=== PATIENT | male | born 1990 | race Hispanic/Latino ===

== ENCOUNTER 2019-11-12 14:35 | Emergency (ER) | payer OTHER, SELFPAY ==
[2019-11-12 14:38] VITALS: BP 128/77; PULSE 76; RESP 18; TEMP 36.4; O2SAT 100; BMI 19.5
--- NOTE | 2019-11-12 15:10 | ED.DCSUM_ITS ---
History of Present Illness Chief Complaint: General Illness Informant: Patient, Family Onset: Days - 4 days Current Severity: Mild Maximum Severity: Mild Narrative: Patient presents with 4 days of flulike symptoms. He describes fever up to 101 with dry heaves, nausea, with occasional vomiting. He has mild muscle aches, worse in his back. Minimal cough noted. He does not feel short of breath or have abdominal pain. He went to urgent care to get a Covid test and they sent him here secondary to scleral icterus. Patient states that his family members have been commenting that his eyes look yellow for the past couple of days. He does state that he has been taking [id number] cold medicine which I suspect may have Tylenol in it. Family at bedside states that he drank an entire bottle of it last night. He does have history of alcohol use with approximately 6 beers a day. He denies history of hepatitis. Past Medical History - Allergies and Home Meds Allergies/Adverse Reactions: Allergies No Known Allergies Allergy (Verified 11/12/19 14:41) Primary Care Physician: Care Physician,No Primary [Primary Care Provider] - Past Medical History: None Smoking Status: Current some day smoker Alcohol: Occasional - 6 beers per day Review of Systems General: Reports: Fever. Denies: Chills Eyes: Denies: Visual changes - bilaterally ENT: Denies: Bilateral ear pain, Rhinorrhea, Sore throat Cardiovascular: Denies: Chest pain Respiratory: Reports: Cough, Sputum. Denies: Dyspnea Gastrointestinal: Reports: Nausea, Vomiting. Denies: Abdominal pain, Diarrhea Genitourinary: Denies: Dysuria Musculoskeletal: Reports: Myalgias. Denies: Swelling, Extremity Pain Skin: Denies: Rash Neurological: Denies: Headache Hematologic: Denies: Easy bruising, Easy bleeding Allergy: Denies: Uticaria Physical Exam Vital Signs/Narrative: Vital Signs Temp Pulse Resp BP Pulse Ox 11/12/19 14:38 97.6 F L 76 18 128/77 H 100 Inital Vital Signs reviewed: Yes General: Well nourished, Well developed Head: Normocephalic Eyes: Perrl, EOMI Neck: Supple Cardiovascular: Regular rate, Regular rhythm Respiratory: No distress, CTA bilaterally Abdomen: Soft, Nontender, Normal bowel sounds Extremities: Nontender Skin: Normal color Neurological: Alert, Oriented x3, Normal Strength, Normal Sensation Psychological: Normal affect Diagnostic/Tx/Re-eval Laboratory Results 11/12/19 11/12/19 11/12/19 15:27 15:27 15:27 WBC 8.3 RBC 6.03 Hgb 14.1 Hct 45.4 MCV 75.3 L MCH 23.4 L MCHC 31.1 L RDW Std Deviation 39.7 RDW Coeff of Darling 14.9 H Plt Count 259 MPV 11.0 Immature Gran % (Auto) 0.400 Neut % (Auto) 77.0 H Lymph % (Auto) 15.6 L Union % (Auto) 6.5 Eos % (Auto) 0.1 Baso % (Auto) 0.4 Absolute Neuts (auto) 6.4 Absolute Lymphs (auto) 1.29 Nucleated RBC % 0 Sodium 142 Potassium 4.1 Chloride 108 H Carbon Dioxide 27.0 Anion Gap 7 BUN 8 Creatinine 1.00 Estim Creat Clear Calc 96.13 Est GFR (MDRD) Af Amer 114 Est GFR (MDRD) Non-Af 94 BUN/Creatinine Ratio 8.0 L Glucose 109 H Calcium 9.1 Total Bilirubin 0.80 Direct Bilirubin 0.29 AST 13 L ALT 18 Alkaline Phosphatase 77 Total Protein 7.7 Albumin 4.4 Globulin 3.3 Lipase 71 L Acetaminophen < 2.0 L - Medical Decision Making Patient was given IV fluids here. On repeat evaluation he is resting comfortably. Test results are discussed with patient and mother at bedside. At this time there is no evidence of liver injury. I do not appreciate significant scleral icterus on exam. Patient was advised not to return to work until his Covid test is resulted and he is free of fever for 48 hours. ED Disposition - Plan for ED Patient: Disposition: Home or Assisted Living Diagnosis: Viral syndrome Instructions: ED Viral Syndrome Referrals: Miky Zazueta MD [STAFF PHYSICIAN] - As Needed
[2019-11-12 15:41] LABS: Absolute Lymphocyte Count 1.29 X10^3/uL (0.83-4.51); Absolute Neutrophil Count 6.4 X10^3/uL (2.0-7.7); Basophil# 0.03 X10^3/uL; Basophil% 0.4 % (0-1); Eosinophil# 0.01 X10^3/uL; Eosinophils% 0.1 % (0-5); Hematocrit 45.4 % (40-54); Hemoglobin 14.1 g/dL (13.0-16.5); Lymphocyte # 1.29 X10^3/ul (4.0); Lymphocyte % 15.6 % (19-41); Mean Corp Hgb Conc 31.1 g/dL (32-36); Mean Corpuscular Hgb 23.4 pg (27.0-32.0); Mean Corpuscular Volume 75.3 fL (80-94); Monocyte# 0.54 X10^3/uL; Monocyte% 6.5 % (0-10); NRBC Flagged by Analyzer 0 % (0-5); Neutrophil # 6.36 X10^3/uL (2.7-7.7); Platelet Count 259 K/mm3 (150-450); RBC Distribution Width CV 14.9 % (11.6-14.6); RBC Distribution Width SD 39.7 fl (35.1-43.9); Red Blood Count 6.03 M/mm3 (4.6-6.2); White Blood Count 8.3 K/mm3 (4.4-11.0)
[2019-11-12 16:07] LABS: AST(SGOT) 13 U/L (15-37); Alanine Aminotransfer ALT/SGPT 18 U/L (16-61); Albumin, Serum 4.4 g/dL (3.2-5.0); Alkaline Phosphatase 77 U/L (45-117); Anion Gap 7 (5-15); BUN 8 mg/dL (7-18); Bilirubin, Direct 0.29 mg/dL (0.00-0.30); Calcium,Total 9.1 mg/dL (8.5-10.1); Chloride 108 mmol/L (98-107); EST Glomerular Filtration Rate 94 mL/min (>60); Est Glom Filt Rate - Afr Amer 114 mL/min (>60); Estimated Creatinine Clearance 96.13 ml/min; Globulin 3.3 g/dL (2.2-4.2); Glucose 109 mg/dL (74-106); Lipase 71 U/L (73-393); Potassium 4.1 mmol/L (3.5-5.1); Protein, Total 7.7 g/dL (6.4-8.2); Sodium Level 142 mmol/L (136-145)
[2019-11-12 17:28] LABS: Acetaminophen (Tylenol) Level < 2.0 ug/mL (10.0-30.0)
[2019-11-12 17:35] VITALS: BP 128/79; PULSE 62; RESP 18; O2SAT 99
== END 2019-11-12 17:46 | disposition home or self-care (01) ==
PROVIDERS: Emergency Provider Emergency Medicine
DX: B34.9 Viral infection, unspecified (principal); R50.9 Fever, unspecified; R11.2 Nausea with vomiting, unspecified; R05 Cough
CPT/HCPCS: 80048; 80076; 80329; 83690; 85025; 99283; J7030; A4216; G0480

== ENCOUNTER 2019-12-30 22:04 | Emergency (ER) | payer SELFPAY ==
[2019-12-30 22:05] VITALS: BP 130/80; PULSE 72; RESP 15; TEMP 36.3; O2SAT 100; BMI 20.9
--- NOTE | 2019-12-30 22:10 | RAD_ITS ---
STUDY: X-RAY - RIGHT HAND REASON FOR EXAM: Male, 29 years old. PUNCHED A WALL 4-5 DAYS AGO . PAIN ALONG KNUCKLES TECHNIQUE: 3 view(s) of the hand. COMPARISON: None. FINDINGS: Normal radiocarpal articulation. Normal distal radioulnar joint. Well corticated separate ossicle of the ulnar styloid process. Normal visualized carpal bones. Normal carpal articulations Normal carpometacarpal articulation of the thumb. Normal second through fifth carpometacarpal joints. Normal metacarpi. Normal metacarpophalangeal joint of the thumb. Normal interphalangeal joint of the thumb. Normal proximal and distal phalanges of the thumb. Normal metacarpophalangeal joints of the second through fifth fingers. Normal proximal and distal interphalangeal joints of the second through fifth fingers. Normal phalanges of the second through fifth fingers. The soft tissue structures are unremarkable. RAD/Hand Min 3 Views IMPRESSION: Normal x-ray examination of the hand. Negative for fracture or dislocation. Electronically Signed: Anabel Lerma MD at 22:22 EDT , Service support ,
--- NOTE | 2019-12-30 23:35 | ED.VIS.GEN ---
History of Present Illness Chief Complaint: Upper Extremity Injury Informant: Patient Narrative: Patient states that he punched a wall couple days ago resulting in swelling and pain of the right hand. Past Medical History - Allergies and Home Meds Allergies/Adverse Reactions: Allergies No Known Allergies Allergy (Verified 12/30/19 22:07) Primary Care Physician: Care Physician,No Primary [Primary Care Provider] - Prior records reviewed: Yes Past Medical History: None Surgical History: noncontributory Smoking Status: Never smoker Drugs: None Review of Systems General: Denies: Chills, Fever, Sweats Eyes: Denies: Visual changes - bilaterally, Diplopia ENT: Denies: Rhinorrhea, Sore throat Cardiovascular: Denies: Chest pain, Palpitations Respiratory: Denies: Dyspnea, Cough, Dyspnea on exertion Gastrointestinal: Denies: Abdominal pain, Nausea, Vomiting, Diarrhea, Melena, Hematochezia Genitourinary: Denies: Dysuria, Hematuria, Frequency Musculoskeletal: Reports: Extremity Pain. Denies: Back pain Skin: Denies: Rash, Wounds Neurological: Denies: Headache, Weakness, Numbness Physical Exam Vital Signs/Narrative: Vital Signs Temp Pulse Resp BP Pulse Ox 12/30/19 22:05 97.4 F L 72 15 130/80 H 100 Inital Vital Signs reviewed: Yes General: Well nourished, Well developed, No Acute Distress Head: Normocephalic, Atraumatic Eyes: Perrl, EOMI ENT: Moist mucous membranes, No rhinorrhea Neck: Supple, Nontender Cardiovascular: Regular rate, Regular rhythm, No murmurs Respiratory: No distress, CTA bilaterally, Chest nontender Abdomen: Soft, Nontender, Nondistended, Normal bowel sounds Back: Nontender, Normal Inspection Extremities: Tenderness - Tender to palpation over the dorsum of the right ring and little MCP joints. No malrotation. Skin: Normal color, No rash Neurological: Alert, Oriented x3, Cranial nerves II-XII grossly intact, Normal Strength, Normal Sensation Psychological: Normal affect, Normal Mood Diagnostic/Tx/Re-eval Clinical Impression(s) from Imaging Studies Hand X-Ray 12/30/19 22:10 IMPRESSION: Normal x-ray examination of the hand. Negative for fracture or dislocation. Electronically Signed: Anabel Lerma MD at 22:22 EDT , Service support , - Medical Decision Making X-rays were negative for fracture. Patient be discharged home with supportive care return if worsening or concerns ED Disposition - Plan for ED Patient: Disposition: Home or Assisted Living Diagnosis: Contusion of right hand Instructions: ED HAND CONTUSION Referrals: Michelle White MD [STAFF PHYSICIAN] - As Needed (for primary care)
== END 2019-12-30 23:41 | disposition home or self-care (01) ==
PROVIDERS: Emergency Provider Emergency Medicine
DX: S60.221A Contusion of right hand, initial encounter (principal); W22.09XA Striking against other stationary object, initial encounter; Y93.9 Activity, unspecified; Y92.9 Unspecified place or not applicable; Y99.9 Unspecified external cause status
CPT/HCPCS: 73130; 99281

== ENCOUNTER 2020-11-19 17:12 | Emergency (ER) | payer BC, SELFPAY ==
[2020-11-19 17:14] VITALS: BP 130/95; PULSE 71; RESP 18; TEMP 36.2; O2SAT 98; BMI 21.5
--- NOTE | 2020-11-19 17:50 | RAD_ITS ---
STUDY: X-RAY - RIGHT ELBOW REASON FOR EXAM: Male, 30 years old. pt states fell through a table x 1 month ago, pain to right elbow near olecranon process TECHNIQUE: 3 view(s) of the elbow. COMPARISON: None. FINDINGS: Normal visualized humerus, radius and ulna. Normal radiocapitellar and ulnotrochlear articulations. The soft tissue structures are unremarkable. There is no demonstrated fracture. RAD/Elbow min 3 Views IMPRESSION: Normal x-ray examination of the elbow. Electronically Signed: Papito Christianson MD at 18:53 EDT , Service support ,
--- NOTE | 2020-11-19 20:32 | EDS_ITS ---
HPI History of Present Illness Chief Complaint: Upper Extremity Injury Informant: patient Occured/Mechanism Mechanism/Context: Yes blunt trauma Onset/Context/Timing Onset: Month(s) (1) Context: Sudden Onset Timing: Continuous Quality of Pain: Aching Location: R elbow, occ radiating down into proximal ulna Current Severity: Mild Maximum Severity: Severe Worsened by: bending elbow and sometimes w/ pinching things, using fingers/hand Relieved by: remaining still Associated Symptoms Associated Symptoms: Positive for Weakness (R hand sometimes); Negative for Parasthesia and Loss of Funtion Narrative Narrative: Patient states he accidentally put his elbow through a table a month ago and is having persistent problems in his elbow along with a piece of something that is floating near his olecranon and he feels like it is bone and may be fractured. 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 This is his first evaluation medically for this injury. PFSH PFSH no medical history Home Medications NK 11/12/19 [History Last Taken Unknown] Allergy/AdvReac Type Severity Reaction Status Date / Time No Known Allergies Allergy Verified 11/19/20 17:16 Social History Smoking Status: Never smoker ROS ROS ED Constitutional Constitutional ED: Denies chills or fever(s) Musculoskeletal Musculoskeletal: Reports extremity pain; Denies neck pain Integumentary Denies Abrasions, rash or wounds Neurologic Neurologic: Reports as per HPI and weakness; Denies paresthesias EXAM Physical Exam Const Vital Signs: 11/19/20 17:14 Temperature 97.1 F L Temperature Source Temporal Pulse Rate 71 Respiratory Rate 18 Blood Pressure 130/95 H Blood Pressure Mean 106 Pulse Ox 98 Oxygen Delivery Method Room Air Positive well nourished and well developed General Appearance ED: well developed and NAD Neck full ROM and supple Back/Spine normal ROM and normal to inspection Extremity normal to inspection and full ROM Extremity Narrative: Small mobile piece of soft tissue which is subcutaneous at the olecranon. I can push it over the olecranon more distally when the patient has his elbow bent and it is painful/tender. No overlying erythema. No b ogginess. Full range of motion about the elbow including pronation supination. Tender at the insertion of the hand/finger flexors just distal to the medial epicondyle. All compartments soft forearm and arm. Neuro oriented x3, no focal motor deficits and no sensory deficits noted Neuro Narrative: Normal motor and sensory right median, ulnar, radial nerve including PIN and AIN branches Sensorium / Orientation: alert Psych mental status grossly normal and thought process normal Skin no wounds Rashes: no rashes MDM MDM MDM Narrative Medical decision making narrative: Elbow x-rays are normal. I reassured the patient that this palpable subcutaneous soft tissue painful nodule is not bone. He may have had a traumatic bursitis but it was difficult to tell since he presents 1 month after the injury. What I am feeling is tender, and it may be scar tissue or something floating in the bursa. It is limited to the olecranon area. He is also tender in the insertion of the finger/wrist flexor group at the medial epicondyle. He was given golfers elbow treatment recommendations as well as NSAIDs, and follow-up with orthopedics if he thinks his weakness is true and not limited by pain, as we discussed this he thinks maybe it might be pain related, he is not objectively weak on my exam. Radiography Diagnostic Testing: Radiology Impression Elbow X-Ray 11/19/20 17:50 IMPRESSION: Normal x-ray examination of the elbow. Electronically Signed: Papito Christianson MD at 18:53 EDT , Service support , Discharge Plan Triage Chief Complaint: Upper Extremity Injury ED Provider: Claude Sommer Dx/Rx/DC Orders Clinical Impression: Contusion of right elbow, Right hand weakness Instructions: Understanding Medial Epicondylitis, ED Contusion, Elbow Prescriptions: No Action NK RF: 0 Stand Alone Forms: ED Work / School Excuse Primary Care Provider: Care Physician,No Primary Referrals: Taz Farley DO [STAFF PHYSICIAN] - As Needed Care Physician,No Primary [Primary Care Provider] - Disposition Disposition: Home, Self Care Discharge Date/Time: 11/19/20 20:42
[2020-11-19 20:41] VITALS: BP 114/76; PULSE 62; RESP 15; O2SAT 98
== END 2020-11-19 20:42 | disposition home or self-care (01) ==
PROVIDERS: Emergency Provider Emergency Medicine
DX: S50.01XA Contusion of right elbow, initial encounter (principal); R53.1 Weakness; W22.8XXA Striking against or struck by other objects, initial encounter; Y93.9 Activity, unspecified; Y92.9 Unspecified place or not applicable; Y99.9 Unspecified external cause status
CPT/HCPCS: 73080; 99282

== ENCOUNTER 2021-08-06 00:47 | Emergency (ER) | payer OTHER, BC, SELFPAY ==
[2021-08-06 00:48] VITALS: BP 130/83; PULSE 95; RESP 14; TEMP 36.6; O2SAT 98; BMI 21.8
--- NOTE | 2021-08-06 01:04 | EX.ED.GENINJ ---
HPI History of Present Illness Chief Complaint: Laceration Informant: patient Narrative Narrative: Patient cut his left wrist with a piece of metal at work just a short time ago. There is mild bleeding is controlled easily with pressure. Never any pulsatile bleeding. No numbness tingling or weakness. Tetanus is unknown. No other injury. [facility] Home Medications NK 11/12/19 [History Last Taken Unknown] Allergy/AdvReac Type Severity Reaction Status Date / Time No Known Allergies Allergy Verified 08/06/21 00:51 Social History Smoking Status: Never smoker ROS ROS ED Constitutional Constitutional ED: Denies fever(s) Gastrointestinal Gastrointestinal: Denies nausea or vomiting Musculoskeletal Musculoskeletal: Reports other Details: Laceration as in history of present illness. Integumentary Reports other Details: Laceration as in history of present illness peer Neurologic Neurologic: Denies paresthesias or weakness Hematologic/Lymphatic Hematologic/Lymphatic: Denies easy bleeding or easy bruising EXAM Physical Exam Const Vital Signs: 08/06/21 00:48 Temperature 98 F Temperature Source Temporal Pulse Rate 95 Respiratory Rate 14 Blood Pressure 130/83 H Blood Pressure Mean 98 Pulse Ox 98 Oxygen Delivery Method Room Air Positive well nourished and well developed General Appearance ED: well developed Resp normal respiratory effort Cardio Rate: regular rate Extremity Extremity Narrative: Wrist is wrapped with Band-Aid and gauze. This is taken down. There is essentially no blood on this. There is a 2 cm laceration transversely in the right wrist area toward the medial side. No active bleeding. Tendon function distally including superficial and deep are intact. No neurologic injury. Capillary refills normal. Sensation is all normal. Neuro oriented x3, no focal motor deficits and no sensory deficits noted Sensorium / Orientation: alert Skin Skin Narrative: 2 cm laceration right volar wrist PROC Procedures Lacerations Right volar medial wrist: Length: 2 m Depth: Sub Q Shape: Linear Prep: Sterile Conditions and Shure-Clens Laceration repair: Lidocaine with epi, Local and Skin sutures Irrigated (ml): 150 Number of Sutures/Cord: 4 Suture Information: Ethilon, Simple and 4-0 Comment: Wound edges closes with good cosmesis and hemostasis. Extensive scrubbing and irrigation. MDM MDM MDM Narrative Medical decision making narrative: Suturing was done. Patient tolerated well. We explained how to care for the wound and follow-up. We recommend 10 to 14 days for until suture removal. We discussed signs of infection. Discharge Plan Triage Chief Complaint: Laceration ED Provider: Kush Mascorro Dx/Rx/DC Orders Clinical Impression: Laceration of right wrist Instructions: ED Laceration: All Closures Prescriptions: No Action NK RF: 0 Primary Care Provider: Care Physician,No Primary Referrals: Delonte Junior DO [STAFF PHYSICIAN] - 10-14 Days suture removal Care Physician,No Primary [Primary Care Provider] - Disposition Disposition: Home, Self Care
[2021-08-06] MEDS: Diphth,Pertuss(Acell),Tet Vac 0.5 ML Vial IM (01:05)
== END 2021-08-06 01:52 | disposition home or self-care (01) ==
LOC: ED 01:37
PROVIDERS: Emergency Provider Emergency Medicine; Visit Provider Emergency Medicine
DX: S61.511A Laceration without foreign body of right wrist, initial encounter (principal); Z23 Encounter for immunization; X58.XXXA Exposure to other specified factors, initial encounter
CPT/HCPCS: 12001; 90471; 90715; 99283